=== PATIENT | male | born 1960 | race Caucasian/White ===

== ENCOUNTER → 2019-12-25 | Outpatient (CLI) | payer OTHER ==
--- NOTE | 2019-12-26 12:55 | NM ---
EXAMINATION TYPE: NM WBC limited DATE OF EXAM: 12/26/2019 COMPARISON: No plain film supplied for correlation. HISTORY: Infected bursitis TECHNIQUE: Following administration of 20.4 mCi Tc99m Ceretec. Images obtained 4 hour(s) and 24 nahum r(s) post injection. FINDINGS: Uptake within the forearms is symmetric. Linear area of uptake noted in the proximal right upper extr emity peripherally. Mild soft tissue uptake may be due to cellulitis. Uptake in the left hand level i s due to injection site. There are differences in rotation of the 2 upper extremities. IMPRESSION: Linear uptake may represent marrow activity which is mild, asymmetric in the distal humerus on the ri ght as compared to left, possibly technical, suspect some underlying cellulitis. Alternate imaging co uld be performed for better evaluation.
== END | disposition home or self-care (01) ==
LOC: RADNMMAIN 06:47
PROVIDERS: ATTEND Orthopaedic Surgery
DX: M71.121 Other infective bursitis, right elbow (principal)

== ENCOUNTER 2025-01-03 19:30 | Emergency (ER) | payer OTHER ==
[2025-01-03 19:37] VITALS: RESP 18
--- NOTE | 2025-01-03 20:31 | ED ---
Neck Injury/Pain HPI - General Source: patient, family Mode of arrival: ambulatory Limitations: no limitations <Lou Haque - Last Filed: 01/03/25 20:30> <Araseli Steiner - Last Filed: 01/03/25 23:57> - General Chief Complaint: Neck Pain/Injury Stated Complaint: Neck/Shoulder Pain Time Seen by Provider: 01/03/25 20:30 - History of Present Illness Initial Comments: Quick note: 64-year-old male presenting chief complaint of neck pain. Ongoing for few days. States that pain does go down his arms and he is having some weakness in the bilateral arms. No injury or trauma. (Lou Haque) This is a 64-year-old male with a history of early onset dementia presenting to the daughter for concerns of neck pain. Patient is a overall poor historian due to his history of dementia. A lot of history is provided by family at bedside. They report that patient has been complaining of neck pain over the past few days and states that he will intermittently feel like he is having pain in both of his arms. Patient and family deny any recent or trauma to the neck such as falls or accidents. Patient states that he has pain with range of motion. He is denying headaches, fevers, visual disturbances, back pain, chest pain or difficulty breathing. (Araseli Steiner) - Related Data Allergies Allergy/AdvReac Type Severity Reaction Status Date / Time No Known Allergies Allergy Verified 01/03/25 19:38 Review of Systems ROS Other: All systems not noted in ROS Statement are negative. <Lou Haque - Last Filed: 01/03/25 20:30> ROS Other: All systems not noted in ROS Statement are negative. <Araseli Steiner - Last Filed: 01/03/25 23:57> ROS Statement: Those systems with pertinent positive or pertinent negative responses have been documented in the HPI. Past Medical History Past Medical History: Dementia, Hyperlipidemia History of Any Multi-Drug Resistant Organisms: None Reported Past Surgical History: No Surgical Hx Reported Past Psychological History: No Psychological Hx Reported Smoking Status: Current every day smoker Past Alcohol Use History: Rare Past Drug Use History: None Reported <Lou Haque - Last Filed: 01/03/25 20:30> General Exam Limitations: no limitations <Lou Haque - Last Filed: 01/03/25 20:30> Neck exam: Present: normal inspection, tenderness, full ROM. Absent: lymphadenopathy, thyromegaly Respiratory exam: Present: normal lung sounds bilaterally. Absent: respiratory distress, wheezes, rales, rhonchi, stridor Cardiovascular Exam: Present: regular rate, normal rhythm, normal heart sounds. Absent: systolic murmur, diastolic murmur, rubs, gallop, clicks GI/Abdominal exam: Present: soft, normal bowel sounds. Absent: distended, tenderness, guarding, rebound, rigid Extremities exam: Present: normal inspection, full ROM, normal capillary refill. Absent: tenderness, pedal edema, joint swelling, calf tenderness Neurological exam: Present: alert, oriented X3, CN II-XII intact <Araseli Steiner - Last Filed: 01/03/25 23:57> - General Exam Comments Initial Comments: Visual Physical Exam Vital signs reviewed General: Well-appearing, nontoxic, no acute distress. Head: Normocephalic, atraumatic Eyes: PERRLA, EOMI ENT: Airway patent Chest: Nonlabored breathing Skin: No visual rash, normal skin tone Neuro: Alert and oriented 3 Musculoskeletal: No gross abnormalities (Lou Haque) Course Vital Signs 01/03/25 01/03/25 19:35 22:18 Temperature 98 F 97.8 F Pulse Rate 77 78 Respiratory 18 18 Rate Blood Pressure 131/79 O2 Sat by Pulse 96 99 Oximetry Medical Decision Making <Lou Haque - Last Filed: 01/03/25 20:30> <Araseli Steiner - Last Filed: 01/03/25 23:57> - Medical Decision Making I performed the quick note portion of this visit, electronically signed Lou Haque PA-C (Lou Haque) Was pt. sent in by a medical professional or institution (MILLY Cali, DONOR PROCESSOR, urgent care, hospital, or intermediate...) When possible be specific @ -No Did you speak to anyone other than the patient for history (EMS, parent, family, police, friend...)? What history was obtained from this source @ -Daughter and at bedside said the patient has history of early onset dementia and is complaining of neck pain over the past few days and was evaluated yesterday at outside hospital where he was given a dose of Toradol instructed follow-up with primary care doctor. Did you review nursing and triage notes (agree or disagree)? Why? @ -I reviewed and agree with nursing and triage notes Were old charts reviewed (outside hosp., previous admission, EMS record, old EKG, old radiological studies, urgent care reports/EKG's, intermediate records)? Report findings @ -No old charts were reviewed Differential Diagnosis (chest pain, altered mental status, abdominal pain women, abdominal pain men, vaginal bleeding, weakness, fever, dyspnea, syncope, headache, dizziness, GI bleed, back pain, seizure, CVA, palpatations, mental health, musculoskeletal)? @ -Cervical spine stenosis, cervical spine fracture, cervical spine strain, this list not all inclusive EKG interpreted by me (3pts min.). @ -none X-rays interpreted by me (1pt min.). @ -None done CT interpreted by me (1pt min.). @ -CT of the cervical spine without contrast reveals no acute osseous abnormality, multilevel degenerative disc changes. U/S interpreted by me (1pt. min.). @ -None done What testing was considered but not performed or refused? (CT, X-rays, U/S, labs)? Why? @ -None What meds were considered but not given or refused? Why? @ -None Did you discuss the management of the patient with other professionals (professionals i.e. , PA, DONOR PROCESSOR, lab, RT, psych nurse, social sciences instructor, invas tech, teacher, artillery officer, geriatric case manager)? Give summary @ -No Was smoking cessation discussed for >3mins.? @ -No Was critical care preformed (if so, how long)? @ -No Were there social determinants of health that impacted care today? How? (Homelessness, low income, unemployed, alcoholism, drug addiction, transportation, low edu. Level, literacy, decrease access to med. care, detention, rehab)? @ -No Was there de-escalation of care discussed even if they declined (Discuss DNR or withdrawal of care, Hospice)? DNR status @ -No What co-morbidities impacted this encounter? (DM, HTN, Smoking, COPD, CAD, Cancer, CVA, ARF, Chemo, Hep., AIDS, mental health diagnosis, sleep apnea, morbid obesity)? @ -None Was patient admitted / discharged? Hospital course, mention meds given and route, prescriptions, significant lab abnormalities, going to OR and other pertinent info. @ -Discharge. 64-year male presenting with family for concerns of neck pain. Patient is originally evaluated in the emergency department waiting room as a quick note where CT imaging is ordered. On my evaluation patient noted to have full range of motion of the cervical spine with bilateral upper extremity range of motion intact with no evidence of paresthesias or weakness. CT imaging is unremarkable. He is provided with dose of a muscle laxer for pain relief and instructed continue supportive treatment. Patient does have a prescription for [place] that he takes at home for pain. Case discussed with my attending Dr. Mayorga Undiagnosed new problem with uncertain prognosis? @ -No Drug Therapy requiring intensive monitoring for toxicity (Heparin, Nitro, Insulin, Cardizem)? @ -No Were any procedures done? @ -No Diagnosis/symptom? @ -neck strain Acute, or Chronic, or Acute on Chronic? @ -Acute Uncomplicated (without systemic symptoms) or Complicated (systemic symptoms)? @ -Uncomplicated Side effects of treatment? @ -No Exacerbation, Progression, or Severe Exacerbation? @ -No Poses a threat to life or bodily function? How? (Chest pain, [place], [place], pneumonia, PE, COPD, DKA, ARF, appy, cholecystitis, CVA, Diverticulitis, Homicidal, Suicidal, threat to staff... and all critical care pts) @ -No (Araseli Steiner) Disposition <Lou Haque - Last Filed: 01/03/25 20:30> Is patient prescribed a controlled substance at d/c from ED?: No Time of Disposition: 21:41 <Araseli Steiner - Last Filed: 01/03/25 23:57> Clinical Impression: Strain of neck Disposition: HOME SELF-CARE Condition: Good Instructions (If sedation given, give patient instructions): Cervical Strain (ED) Additional Instructions: Please return to the Emergency Department if symptoms worsen or any other concerns. Referrals: Nonstaff,Physician [Primary Care Provider] - 1-2 days
[2025-01-03] MEDS: MORPHINE SULFATE 4 MG/ML SYRINGE IM STA (21:09)
--- NOTE | 2025-01-03 21:28 | CT ---
EXAMINATION TYPE: CT cervical spine wo con DATE OF EXAM: 01/03/2025 9:01 PM COMPARISON: None. CLINICAL INDICATION: Male, 64 years old with history of pain, neck shoulder pain, pain TECHNIQUE: CT of the cervical spine is performed in the axial plane at 2 mm thick sections. Reconstr ucted images in the coronal, and sagittal plane are reviewed on the computer. Contrast used: mL of , (none if empty) Oral contrast used: (none if empty) CT DLP: 427.4 mGycm, Automated exposure control for dose reduction was used. FINDINGS: No acute fractures are evident. There is a cervical kyphosis present. Loss of disc height is present through the cervical spine especially noted at C4-5 C5-6 and C6-7. Ant erior and posterior endplate spurring is present at these levels. Vertebral body heights are preserved. No spinal canal stenosis is evident Neural foraminal narrowing from uncovertebral joint hypertrophy is noted within the mid to lower cerv ical spine. Follow-up can be performed with MRI. IMPRESSION: 1. No acute osseous abnormality cervical spine. 2. Multilevel degenerative disc changes with cervical kyphosis. 3. Foraminal narrowing due to uncovertebral joint hypertrophy. [facility], , 01/03/2025 9:26 PM
[2025-01-03] MEDS: ORPHENADRINE 30 MG/ML 2 ML VIAL IM STA (21:52)
[2025-01-03 22:20] VITALS: BP 131/79; PULSE 78; TEMP 97.8
== END 2025-01-04 02:01 | disposition home or self-care (01) ==
LOC: EC 19:30
DX: S16.1XXA Strain of muscle, fascia and tendon at neck level, initial encounter (principal); F17.200 Nicotine dependence, unspecified, uncomplicated; X58.XXXA Exposure to other specified factors, initial encounter
CPT/HCPCS: 72125; 99283; 96372; J2360